=== PATIENT | female | born 1945 | race Caucasian/White ===

== ENCOUNTER → 2018-10-30 | Outpatient (CLI) | payer MEDICARE, OTHER | END | disposition home or self-care (01) | LOC: PCVCCLINIC 14:36 | PROVIDERS: ATTEND Internal Medicine | DX: E78.5 Hyperlipidemia, unspecified (principal); R94.31 Abnormal electrocardiogram [ECG] [EKG]; R55 Syncope and collapse; R42 Dizziness and giddiness; R41.3 Other amnesia; Z88.8 Allergy status to other drugs, medicaments and biological substances; Z79.899 Other long term (current) drug therapy | CPT/HCPCS: 93005; G0463 ==

== ENCOUNTER → 2018-11-12 | Outpatient (CLI) | payer MEDICARE, OTHER ==
[~2018-11-12] MED LIST: REGADENOSON 0.4 MG/5 ML DISP.SYRIN. IV ONE
--- NOTE | 2018-11-12 10:23 | PCVCIMAG ---
APPROVED REPORT Study performed: 11/12/2018 07:33:26 EXAM: Comprehensive 2D, Doppler, and color-flow Echocardiogram Patient Location: Echo lab Status: routine BSA: 1.65 HR: 82 bpmBP: 116/72 mmHg Rhythm: NSR Other Information Study Quality: Adequate Risk Factors: Cardiac Risk Factors: Hyperlipidemia Indications Syncope 2D Dimensions IVSd: 9.09 (7-11mm) LVDd: 40.86 mm PWd: 9.98 (7-11mm)Ascending Ao: 30.72 (22-36mm) LVDs: 31.74 (25-40mm) Left Atrium: 35.23 (27-40mm) Aortic Root: 28.28 mm LV Single Plane 4CH: 48.33 % LV Single Plane 2CH: 47.26 % Biplane EF: 47.1 % Volumes Left Atrial Volume (Systole) Single Plane 4CH: 25.81 mLSingle Plane 2CH: 29.42 mL LA ESV Index: 17.00 mL/m2 Aortic Valve AoV Peak Jose.: 1.29 m/s AO Peak Gr.: 6.62 mmHgLVOT Max P.45 mmHg LVOT Max V: 0.75 m/s AI Vmax: 4.18 m/s AI Rusk: 2.31 m/s2 AI PHT: 524.53 ms Mitral Valve E/A Ratio: 0.6 MV Decel. Time: 190.24 ms MV E Max Jose.: 0.54 m/s MV A Jose.: 0.92 m/s IVRT: 138.41 ms Pulmonary Valve PV Peak Jose.: 0.83 m/sPV Peak Gr.: 2.77 mmHg Pulmonary Vein P Vein S: 0.31 m/sP Vein A: 0.56 m/s P Vein D: 0.32 m/sP Vein A Dur.: 114.2 msec P Vein S/D Ratio: 0.97 Left Ventricle The left ventricle is normal size. There is normal LV segmental wall motion. There is normal left ventricular wall thickness. Left ventricular systolic function is mildly decreased. LVEF is 45-50%. Grade I - abnormal relaxation pattern. Right Ventricle The right ventricle is normal size. The right ventricular systolic function is normal. Atria The left atrium size is normal. The right atrium size is normal. Aortic Valve The aortic valve is normal in structure. Mild aortic regurgitation. There is no aortic valvular stenosis. Mitral Valve The mitral valve is normal in structure. There is no mitral valve regurgitation noted. No evidence of mitral valve stenosis. Tricuspid Valve The tricuspid valve is normal in structure. Unable to assess PA pressure due to insufficient tricuspid regurgitation. Pulmonic Valve The pulmonary valve is normal in structure. Mild pulmonic regurgitation. Great Vessels The aortic root is normal in size. IVC is normal in size and collapses >50% with inspiration. Pericardium There is no pericardial effusion. There is no pleural effusion. <Conclusion> The left ventricle is normal size. LVEF is 45-50%. The aortic valve is normal in structure. Mild aortic regurgitation. The mitral valve is normal in structure. The tricuspid valve is normal in structure. Unable to assess PA pressure due to insufficient tricuspid regurgitation. The pulmonary valve is normal in structure. Mild pulmonic regurgitation. There is no pericardial effusion.
--- NOTE | 2018-11-13 13:34 | PCVCIMAG ---
APPROVED REPORT Imaging Protocol: Rest Tc-99m/Stress Tc-99m 1 day Study performed: 11/12/2018 09:11:46 Indication: Syncope, Lightheadedness Patient Location: Out-Patient Stress Nurse: Eri Cantor RN, Hayley Nicole RN IN Tech:Bushra DARLYN SosaMT Ht: 5 ft 1 in Wt: 145 lbs BSA: 1.65 m2 HR: 78 bpm BP: 143/68 mmHg BMI: 27.39 Rhythm: Sinus Rhythm, Sinus Arrhythmia Medical History Medical History: Hyperlipidemia Medications: Atorvastatin, Gabapentin, Zanaflex Allergies: Morphine Cardiac Risk Factors: Age Pretest Chest Pain Characteristics: No chest pain Exercise History: Sedentary Resting Data Rest SPECT myocardial perfusion imaging was performed in supine position 45 minutes following the intravenous injection of 10.3 mCi of Tc-99m Sestamibi. Time of rest injection: 829 Date: 11/12/2018 Administration Route: IV Administration Site: Left AC Pharmacologic Stress Pharmacologic stress test was performed by injecting Regadenoson 0.4 mg IV push over 10-15 seconds immediately followed by the intravenous injection of 31.5 mCi of Tc-99m Sestamibi. Time of stress injection: 949 Date: 11/12/2018 Administration Route: IV Administration Site: Left AC Gated Stress SPECT was performed 45 minutes after stress injection. The images were gated to evaluate regional wall motion and calculate left ventricular ejection fraction. Stress Test Details Stress Test: Pharmacologic stress testing performed using 0.4 mg of regadenoson per 5 mL given IV over 10 seconds. Reason for pharmacologic stress test: hx of syncope. HRMax Heart Rate (APMHR): 145 bpm Resting HR: 78 bpmTarget HR (85% APMHR): 123 bpm Max HR Achieved: 110 bpm % of APMHR: 75 Recovery HR: 100 bpm BP Resting BP: 143/68 mmHg Max BP: 143/69 mmHg Recovery BP: 145/67 mmHg ECG Resting ECG: Sinus Rhythm, Sinus Arrhythmia Stress ECG: Sinus Tachycardia Arrhythmia: None Recovery ECG: Sinus Tachycardia Clinical Reason for Termination: Completed protocol Stress Symptoms: None Exercise duration: 0 min 55 sec Stress ECG Conclusion 1. Adequate response to IV Lexiscan 2>Inadequate heart rate for ECG diagnosis Study Data Post stress, the left ventricular ejection was 68%.. SSS: 2 SRS: 0 SDS: 2 TID = 0.81. Perfusion There is a large area of moderately reduced uptake in the entire segment of the inferior wall which is seen on the stress images as well as the resting images. This area thickens and moves normally and is most consistent with attenuation artifact. Wall Motion Normal left ventricular wall motion. Nuclear Conclusion ECG Findings: non-diagnostic Clinical Findings: negative for ischemia Nuclear Findings: negative for ischemia Exercise Capacity: not assessed Left Ventricular Function: normal 1. Low risk study 2. Post stress LVEF of 68% without wall motion abnormalities <Conclusion> 1. Adequate response to IV Lexiscan 2>Inadequate heart rate for ECG diagnosis
== END | disposition home or self-care (01) ==
LOC: PCVCIMAG 08:15
PROVIDERS: ATTEND Internal Medicine
DX: I08.8 Other rheumatic multiple valve diseases (principal); R42 Dizziness and giddiness; E78.5 Hyperlipidemia, unspecified; Z88.8 Allergy status to other drugs, medicaments and biological substances
CPT/HCPCS: 78452; 93017; 93306; A9500; J2785

== ENCOUNTER → 2018-12-04 | Outpatient (CLI) | payer MEDICARE, OTHER | END | disposition home or self-care (01) | LOC: PCVCCLINIC 12:00 | PROVIDERS: ATTEND Internal Medicine | DX: R55 Syncope and collapse (principal); E78.5 Hyperlipidemia, unspecified; R42 Dizziness and giddiness | CPT/HCPCS: G0463 ==